=== PATIENT | male | born 1965 | race Hispanic/Latino ===

== ENCOUNTER → 2017-11-04 | Outpatient (CLI) | payer SELFPAY | END | disposition home or self-care (01) | LOC: RAD 11:00 | DX: H93.13 Tinnitus, bilateral (principal); R51 Headache | CPT/HCPCS: 70450; 70486 ==

== ENCOUNTER → 2018-06-27 | Outpatient (CLI) | payer SELFPAY ==
[~2018-06-27] VITALS: Ht 170.2 cm; Wt 72.6 kg
[~2018-06-27] MED LIST: GEODON20 MG PO; MULTIPLE VITAM1 EACH PO; NEXIUM40 MG PO; PEPCID40 MG PO; PREPARATION H1 EAC5 TP; UNISOM50 MG PO
[2018-06-27 20:16] LABS: BENZODIAZEPINES, URINE SCREEN Negative (200 ng/mL)
== END | disposition home or self-care (01) ==
LOC: AMB 13:30
PROVIDERS: Anesthesiology
PROC: 0DB68ZX Excision of Stomach, Via Natural or Artificial Opening Endoscopic, Diagnostic (ICD-10-PCS; principal; 2018-06-27)
DX: K29.60 Other gastritis without bleeding (principal); B96.81 Helicobacter pylori [H. pylori] as the cause of diseases classified elsewhere; Z86.010 Personal history of colon polyps; K21.9 Gastro-esophageal reflux disease without esophagitis; Z88.7 Allergy status to serum and vaccine
CPT/HCPCS: 80306 90; 88305; 88342 TC